=== PATIENT | male | born 1985 | race Hispanic/Latino ===

== ENCOUNTER 2019-02-09 00:21 | Emergency (ER) | payer SELFPAY ==
[2019-02-09] MEDS ORDERED: Lidocaine 1% w/Epinephrine 1:100K 20 ML VIAL ONE (00:42)
[2019-02-09] MEDS ORDERED: Lidocaine 2% w/Epinephrine 1:200K 20 ML VIAL ONE (00:50)
[2019-02-09] MEDS ORDERED: Sterile Water Irrigation 250 ML BOT ONE (09:51)
[2019-02-09] MEDS ORDERED: Sodium Chloride Irrig Solution 250 ML BOT ONE (09:51)
== END 2019-02-09 01:24 ==
LOC: MADERS 00:21
DX: S91.311A Laceration without foreign body, right foot, initial encounter (principal); W26.8XXA Contact with other sharp object(s), not elsewhere classified, initial encounter
CPT/HCPCS: 12002; J2001